=== PATIENT | male | born 1965 | race Caucasian/White ===

== ENCOUNTER 2018-06-12 11:48 | Emergency (ER) | payer OTHER ==
[2018-06-12 12:00] VITALS: BP 160/95; PULSE 73; TEMP 98.2; BMI 29.7
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
[2018-06-12] MEDS ORDERED: KETOROLAC TROMETHAMINE 60 MG/2 ML VIAL IM ONE (13:02)
[2018-06-12] MEDS ORDERED: LIDOCAINE 5% TOPICAL PATCH TP ONE (13:02)
[2018-06-12] MEDS ORDERED: KETOROLAC TROMETHAMINE 60 MG/2 ML VIAL ONE (13:11)
[2018-06-12] MEDS ORDERED: LIDOCAINE 5% TOPICAL PATCH ONE (13:11)
[2018-06-12] MEDS ORDERED: LIDOCAINE PATCH REMOVAL MC SCH (22:00)
== END 2018-06-12 14:57 | disposition home or self-care (01) ==
LOC: JERFT 11:48
PROC: 3E0233Z Introduction of Anti-inflammatory into Muscle, Percutaneous Approach (ICD-10-PCS; principal; 2018-06-12)
DX: S13.4XXA Sprain of ligaments of cervical spine, initial encounter (principal); V43.52XA Car driver injured in collision with other type car in traffic accident, initial encounter; Y92.414 Local residential or business street as the place of occurrence of the external cause; Y93.89 Activity, other specified; Y99.8 Other external cause status
CPT/HCPCS: 72050-TC-FY; 99281-25